=== PATIENT | male | born 1965 | race Hispanic/Latino ===

== ENCOUNTER 2019-10-23 12:30 | Outpatient (CLI) | payer OTHER | END 2019-10-23 12:31 | disposition home or self-care (01) | LOC: DTY/OP 12:30 | PROVIDERS: ATTEND Family Medicine | DX: E11.9 Type 2 diabetes mellitus without complications (principal) | CPT/HCPCS: 97802 ==

== ENCOUNTER 2024-07-31 13:16 | Emergency (ER) | payer BC ==
[2024-07-31 14:35] LABS: #Basophils Less than 0.03 10x3/uL (0.0-0.2); #Eosinphils Less than 0.03 10x3/uL (0.0-0.7); %Basophils 0.1 % (0.0-1.0); %Lymphocytes 8.7 % (21.0-51.0); %Monocytes 5.8 % (0.0-10.0); %Neutrophils 84.8 % (42.0-75.0); Hematocrit 40.2 % (42.0-52.0); Hemoglobin 13.2 g/dL (14.0-18.0); Mean Corpuscular HGB CONC 32.8 g/dL (32.0-36.0); Mean Corpuscular Volume 88.4 fL (78.0-98.0); Mean Platelet Volume 8.9 fL (7.4-10.4); Platelet Count 274 10x3/uL (130-400); RBC Distribution Width 13.7 % (11.5-14.5); Red Blood Cell (RBC) Count 4.55 mill/uL (4.70-6.10)
[2024-07-31 14:51] LABS: ALT (SGPT) 23 U/L (8-55); AST (SGOT) 19 U/L (5-34); Albumin 3.9 g/dL (3.5-5.0); Alkaline Phosphatase 116 U/L (40-110); Anion Gap 14 mmol/L (10-20); BUN (Urea Nitrogen) 18 mg/dL (8.4-25.7); Bilirubin, Total 0.7 mg/dL (0.2-1.2); Calc. Creatinine Clearance 0 mL/min (70-130); Calcium 9.9 mg/dL (7.8-10.44); Carbon Dioxide 24 mmol/L (22-29); Chloride 103 mmol/L (98-107); Estimated GFR 100; Globulin 4.7 g/dL (2.4-3.5); Glucose 118 mg/dL (70-105); Lipase 18 U/L (8-78); Potassium 4.4 mmol/L (3.5-5.1); Protein, Total 8.6 g/dL (6.0-8.3); Sodium 137 mmol/L (136-145)
[2024-07-31] MEDS ORDERED: Ketorolac Tromethamine 30 MG (1 mL) VIAL ONE (15:43)
== END 2024-07-31 17:40 | disposition home or self-care (01) ==
LOC: ERS 13:16
DX: M54.42 Lumbago with sciatica, left side (principal); M54.41 Lumbago with sciatica, right side
CPT/HCPCS: 36415; 72131; 80053; 83690; 85025; 96374; J1885

== ENCOUNTER 2024-08-07 15:16 | Outpatient (CLI) | payer BC | END 2024-08-07 15:17 | disposition home or self-care (01) | LOC: ULT 15:16 | PROVIDERS: ATTEND Family Medicine | DX: M79.604 Pain in right leg (principal) ==

== ENCOUNTER 2024-08-28 10:00 | Outpatient (CLI) | payer BC ==
[2024-08-28] MEDS ORDERED: Iopamidol 370 76% 100 ML VIAL ONE (15:16)
== END 2024-08-31 12:00 | disposition home or self-care (01) ==
LOC: CT 10:00
PROVIDERS: ATTEND Thoracic Surgery (Cardiothoracic Vascular Surgery)
DX: I65.23 Occlusion and stenosis of bilateral carotid arteries (principal)
CPT/HCPCS: 70498; Q9967

== ENCOUNTER 2024-09-22 16:22 | Inpatient (IN) | payer BC ==
[2024-09-22 17:43] LABS: #Basophils Less than 0.03 10x3/uL (0.0-0.2); #Eosinophils Less than 0.03 10x3/uL (0.0-0.7); %Basophils 0.2 % (0.0-1.0); %Eosinophils 0.1 % (0.0-10.0); %Monocytes 5.4 % (0.0-10.0); %Neutrophils 73.2 % (42.0-75.0); Hematocrit 36.1 % (42.0-52.0); Hemoglobin 11.9 g/dL (14.0-18.0); Mean Corpuscular Hemoglobin 28.7 pg (27.0-31.0); Mean Corpuscular Volume 87.2 fL (78.0-98.0); Mean Platelet Volume 8.8 fL (7.4-10.4); Platelet Count 149 10x3/uL (130-400); RBC Distribution Width 14.3 % (11.5-14.5); Red Blood Cell (RBC) Count 4.14 mill/uL (4.70-6.10)
[2024-09-22 18:18] LABS: ALT (SGPT) 25 U/L (8-55); AST (SGOT) 21 U/L (5-34); Albumin 3.5 g/dL (3.5-5.0); Alkaline Phosphatase 128 U/L (40-110); Anion Gap 14 mmol/L (10-20); BUN (Urea Nitrogen) 10 mg/dL (8.4-25.7); Bilirubin, Total 0.4 mg/dL (0.2-1.2); Calc. Creatinine Clearance 0 mL/min (70-130); Calcium 9.4 mg/dL (7.8-10.44); Carbon Dioxide 24 mmol/L (22-29); Chloride 102 mmol/L (98-107); Estimated GFR 105; Globulin 4.4 g/dL (2.4-3.5); Glucose 166 mg/dL (70-105); Protein, Total 7.9 g/dL (6.0-8.3); Sodium 136 mmol/L (136-145)
[2024-09-22 18:19] LABS: Troponin I Less than 0.010 ng/mL (< 0.028)
[2024-09-22] MEDS ORDERED: Ondansetron ODT 4 MG TAB PO PRN (18:59)
[2024-09-22] MEDS ORDERED: traMADol HCl 50 MG TAB PO PRN (18:59)
[2024-09-22] MEDS ORDERED: Acetaminophen 650 MG Suppository PR PRN (18:59)
[2024-09-22] MEDS ORDERED: Ondansetron PF 4 MG/2 ML Vial IVP PRN (18:59)
[2024-09-22] MEDS ORDERED: Acetaminophen 325 MG TAB PO PRN (18:59)
[2024-09-22 21:12] LABS: Troponin I Less than 0.010 ng/mL (< 0.028)
[2024-09-22 21:53] VITALS: BMI 23.5
[2024-09-23] MEDS ORDERED: PHENYLEPHRINE-NS 100 MCG/ML 10 ML SYRINGE ONE (10:10)
[2024-09-23] MEDS ORDERED: PROPOFOL 200 MG/20 ML VIAL ONE (10:10)
[2024-09-23] MEDS: Famotidine 20 MG TAB PO SCH (21:07)
[2024-09-23] MEDS: Cefepime 1 GM in Sodium Chloride 0.9% 100 ML IVPB SCH (21:07)
[2024-09-24] MEDS: Famotidine/PF 20 mg/2ml Vial SLOW IVP SCH (02:11)
[2024-09-24] MEDS ORDERED: Atorvastatin Calcium 10 MG TAB ONE (08:28)
[2024-09-24] MEDS ORDERED: Tamsulosin HCl 0.4 MG CAP ONE (08:28)
[2024-09-24] MEDS ORDERED: Aspirin 81 mg Enteric Coated Tablet ONE (08:28)
[2024-09-24] MEDS ORDERED: Famotidine 20 MG TAB ONE ×2 (08:28→21:25)
[2024-09-24] MEDS: Sodium Chloride 0.9% 1,000 ML IV SCH (17:56)
[2024-09-24] MEDS ORDERED: cefTRIAXone (ROCEPHIN) 2 GM VIAL ONE (22:55)
[2024-09-24] MEDS: cefTRIAXone (ROCEPHIN) 2 GM VIAL ONE (22:57)
[2024-09-24] MEDS: Vancomycin (BATCH) 1.25 GM in Premix 1 BAG IVPB SCH (23:27)
[2024-09-25] MEDS: Atorvastatin Calcium 10 MG TAB ONE ×2 (00:36→13:39)
[2024-09-25] MEDS: Tamsulosin HCl 0.4 MG CAP ONE ×2 (00:36→13:39)
[2024-09-25] MEDS: Aspirin 81 mg Enteric Coated Tablet ONE ×2 (00:36→13:39)
[2024-09-25] MEDS: Sodium Chloride 0.9% 100 ML ONE ×2 (00:36→06:10)
[2024-09-25 05:20] LABS: #Basophils Less than 0.03 10x3/uL (0.0-0.2); %Basophils 0.2 % (0.0-1.0); %Eosinophils 0.6 % (0.0-10.0); %Lymphocytes 29.2 % (21.0-51.0); %Monocytes 7.3 % (0.0-10.0); %Neutrophils 61.2 % (42.0-75.0); Hematocrit 32.3 % (42.0-52.0); Hemoglobin 10.5 g/dL (14.0-18.0); Mean Corpuscular HGB CONC 32.5 g/dL (32.0-36.0); Mean Corpuscular Hemoglobin 28.6 pg (27.0-31.0); Mean Platelet Volume 8.7 fL (7.4-10.4); Platelet Count 159 10x3/uL (130-400); Red Blood Cell (RBC) Count 3.67 mill/uL (4.70-6.10)
[2024-09-25 05:56] LABS: Vancomycin, Random 17.5 ug/mL (See Comment)
[2024-09-25 05:58] LABS: ALT (SGPT) 29 U/L (8-55); AST (SGOT) 26 U/L (5-34); Albumin 2.9 g/dL (3.5-5.0); Alkaline Phosphatase 131 U/L (40-110); Anion Gap 13 mmol/L (10-20); BUN (Urea Nitrogen) 15 mg/dL (8.4-25.7); Bilirubin, Total 0.2 mg/dL (0.2-1.2); Calc. Creatinine Clearance 100 mL/min (70-130); Calcium 8.4 mg/dL (7.8-10.44); Carbon Dioxide 23 mmol/L (22-29); Chloride 109 mmol/L (98-107); Estimated GFR 103; Globulin 3.9 g/dL (2.4-3.5); Glucose 179 mg/dL (70-105); Protein, Total 6.8 g/dL (6.0-8.3); Sodium 141 mmol/L (136-145)
[2024-09-25] MEDS: cefTRIAXone (ROCEPHIN) 2 GM VIAL ONE (06:10)
[2024-09-25] MEDS ORDERED: cefTRIAXone (ROCEPHIN) 2 GM VIAL ONE (06:10)
[2024-09-25] MEDS ORDERED: Vancomycin (BATCH) 1.25 GM/250 ML BAG ONE (09:00)
[2024-09-25] MEDS ORDERED: Famotidine 20 MG TAB ONE (09:00)
[2024-09-25] MEDS ORDERED: Iopamidol-370 76% 500 ML MDV (1 ML CHARGE) ONE (11:30)
[2024-09-25] MEDS: Tamsulosin HCl 0.4 MG CAP PO SCH (13:39)
[2024-09-25] MEDS: Aspirin 81 mg Enteric Coated Tablet PO SCH (13:39)
[2024-09-25] MEDS: Atorvastatin Calcium 40 MG TAB PO SCH (13:39)
[2024-09-25] MEDS: VANCOMYCIN 1.25 GM/250 ML BAG 1.25 GM in Premix 1 BAG IVPB SCH (15:00)
[2024-09-25] MEDS: metFORMIN 500 MG TAB PO SCH (17:04)
[2024-09-26] MEDS: Atorvastatin Calcium 10 MG TAB ONE (09:02)
[2024-09-26] MEDS: Aspirin 81 mg Enteric Coated Tablet ONE (09:02)
[2024-09-26] MEDS: Tamsulosin HCl 0.4 MG CAP ONE (09:02)
[2024-09-26] MEDS: Vancomycin (BATCH) 1.25 GM in Premix 1 BAG IVPB SCH (12:06)
[2024-09-27 07:15] LABS: #Basophils Less than 0.03 10x3/uL (0.0-0.2); %Basophils 0.2 % (0.0-1.0); %Lymphocytes 29.4 % (21.0-51.0); %Monocytes 5.4 % (0.0-10.0); %Neutrophils 60.1 % (42.0-75.0); Hematocrit 32.2 % (42.0-52.0); Hemoglobin 10.4 g/dL (14.0-18.0); Mean Corpuscular HGB CONC 32.3 g/dL (32.0-36.0); Mean Corpuscular Hemoglobin 28.6 pg (27.0-31.0); Mean Corpuscular Volume 88.5 fL (78.0-98.0); Mean Platelet Volume 8.8 fL (7.4-10.4); Platelet Count 176 10x3/uL (130-400); RBC Distribution Width 14.5 % (11.5-14.5); Red Blood Cell (RBC) Count 3.64 mill/uL (4.70-6.10)
[2024-09-27 07:33] LABS: ALT (SGPT) 26 U/L (8-55); AST (SGOT) 20 U/L (5-34); Alkaline Phosphatase 114 U/L (40-110); Anion Gap 12 mmol/L (10-20); BUN (Urea Nitrogen) 10 mg/dL (8.4-25.7); Bilirubin, Total 0.2 mg/dL (0.2-1.2); Calc. Creatinine Clearance 117 mL/min (70-130); Calcium 8.6 mg/dL (7.8-10.44); Carbon Dioxide 23 mmol/L (22-29); Chloride 108 mmol/L (98-107); Estimated GFR 108; Globulin 3.7 g/dL (2.4-3.5); Glucose 122 mg/dL (70-105); Potassium 3.8 mmol/L (3.5-5.1); Protein, Total 6.7 g/dL (6.0-8.3); Sodium 139 mmol/L (136-145)
[2024-09-27] MEDS: Atorvastatin Calcium 10 MG TAB ONE (08:56)
[2024-09-27] MEDS: Aspirin 81 mg Enteric Coated Tablet ONE (08:56)
[2024-09-27] MEDS: Tamsulosin HCl 0.4 MG CAP ONE (08:57)
[2024-09-28 05:40] LABS: #Basophils 0.03 10x3/uL (0.0-0.2); %Basophils 0.3 % (0.0-1.0); %Eosinophils 1.2 % (0.0-10.0); %Lymphocytes 30.2 % (21.0-51.0); %Monocytes 6.4 % (0.0-10.0); %Neutrophils 59.9 % (42.0-75.0); Hemoglobin 10.2 g/dL (14.0-18.0); Mean Corpuscular HGB CONC 31.9 g/dL (32.0-36.0); Mean Corpuscular Hemoglobin 27.9 pg (27.0-31.0); Mean Corpuscular Volume 87.4 fL (78.0-98.0); Mean Platelet Volume 9.1 fL (7.4-10.4); Platelet Count 173 10x3/uL (130-400); RBC Distribution Width 14.6 % (11.5-14.5); Red Blood Cell (RBC) Count 3.66 mill/uL (4.70-6.10)
[2024-09-28 05:56] LABS: ALT (SGPT) 25 U/L (8-55); AST (SGOT) 19 U/L (5-34); Albumin 2.9 g/dL (3.5-5.0); Alkaline Phosphatase 105 U/L (40-110); Anion Gap 11 mmol/L (10-20); BUN (Urea Nitrogen) 12 mg/dL (8.4-25.7); Bilirubin, Total 0.2 mg/dL (0.2-1.2); Calc. Creatinine Clearance 118 mL/min (70-130); Calcium 8.8 mg/dL (7.8-10.44); Carbon Dioxide 24 mmol/L (22-29); Chloride 107 mmol/L (98-107); Estimated GFR 108; Globulin 3.4 g/dL (2.4-3.5); Glucose 116 mg/dL (70-105); Potassium 3.8 mmol/L (3.5-5.1); Protein, Total 6.3 g/dL (6.0-8.3); Sodium 138 mmol/L (136-145)
[2024-09-28] MEDS: Tamsulosin HCl 0.4 MG CAP ONE (08:15)
[2024-09-28] MEDS: Aspirin 81 mg Enteric Coated Tablet ONE (08:15)
[2024-09-28] MEDS: DAPTOmycin 700 MG in Sodium Chloride 0.9% 50 ML IVPB SCH (11:01)
[2024-09-28] MEDS: Enoxaparin 40 MG (0.4 mL) SYRINGE SC SCH (20:24)
[2024-09-29] MEDS: Aspirin 81 mg Enteric Coated Tablet ONE (08:43)
[2024-09-29] MEDS: Tamsulosin HCl 0.4 MG CAP ONE (08:43)
[2024-09-29] MEDS: Atorvastatin Calcium 10 MG TAB ONE (08:43)
[2024-09-29 10:27] VITALS: BMI 24.0
[2024-09-29] MEDS ORDERED: Lorazepam 1 MG TAB PO PRN (10:50)
[2024-09-29] MEDS ORDERED: Magnevist 469MG/ML 20 ML VIAL ONE (16:00)
[2024-10-01 04:55] LABS: #Basophils 0.04 10x3/uL (0.0-0.2); %Basophils 0.5 % (0.0-1.0); %Eosinophils 0.7 % (0.0-10.0); %Lymphocytes 30.9 % (21.0-51.0); %Monocytes 5.2 % (0.0-10.0); %Neutrophils 61.3 % (42.0-75.0); Hematocrit 31.9 % (42.0-52.0); Hemoglobin 10.2 g/dL (14.0-18.0); Mean Corpuscular Hemoglobin 28.1 pg (27.0-31.0); Mean Corpuscular Volume 87.9 fL (78.0-98.0); Mean Platelet Volume 8.9 fL (7.4-10.4); Platelet Count 179 10x3/uL (130-400); RBC Distribution Width 15.1 % (11.5-14.5); Red Blood Cell (RBC) Count 3.63 mill/uL (4.70-6.10)
[2024-10-01 06:02] LABS: ALT (SGPT) 24 U/L (8-55); AST (SGOT) 21 U/L (5-34); Alkaline Phosphatase 98 U/L (40-110); Anion Gap 13 mmol/L (10-20); BUN (Urea Nitrogen) 16 mg/dL (8.4-25.7); Bilirubin, Total 0.3 mg/dL (0.2-1.2); Calc. Creatinine Clearance 121 mL/min (70-130); Calcium 8.8 mg/dL (7.8-10.44); Carbon Dioxide 24 mmol/L (22-29); Chloride 108 mmol/L (98-107); Estimated GFR 108; Globulin 3.5 g/dL (2.4-3.5); Glucose 108 mg/dL (70-105); Potassium 3.8 mmol/L (3.5-5.1); Protein, Total 6.5 g/dL (6.0-8.3); Sodium 141 mmol/L (136-145)
[2024-10-02 04:37] LABS: Anion Gap 12 mmol/L (10-20); BUN (Urea Nitrogen) 12 mg/dL (8.4-25.7); Calc. Creatinine Clearance 131 mL/min (70-130); Calcium 8.7 mg/dL (7.8-10.44); Carbon Dioxide 25 mmol/L (22-29); Chloride 107 mmol/L (98-107); Estimated GFR 111; Glucose 102 mg/dL (70-105); Potassium 3.9 mmol/L (3.5-5.1); Sodium 140 mmol/L (136-145)
[2024-10-03 05:04] LABS: Anion Gap 12 mmol/L (10-20); BUN (Urea Nitrogen) 14 mg/dL (8.4-25.7); Calc. Creatinine Clearance 123 mL/min (70-130); Calcium 8.9 mg/dL (7.8-10.44); Carbon Dioxide 25 mmol/L (22-29); Chloride 108 mmol/L (98-107); Estimated GFR 109; Glucose 107 mg/dL (70-105); Sodium 141 mmol/L (136-145)
[2024-10-05 10:30] LABS: Anion Gap 11 mmol/L (10-20); BUN (Urea Nitrogen) 11 mg/dL (8.4-25.7); Calc. Creatinine Clearance 124 mL/min (70-130); Carbon Dioxide 23 mmol/L (22-29); Chloride 106 mmol/L (98-107); Estimated GFR 110; Glucose 111 mg/dL (70-105); Potassium 4.1 mmol/L (3.5-5.1); Sodium 136 mmol/L (136-145); Vancomycin, Random 20.8 ug/mL (See Comment)
[2024-10-05 10:31] LABS: %Basophils 0.2 % (0.0-1.0); %Eosinophils 0.2 % (0.0-10.0); %Monocytes 7.3 % (0.0-10.0); %Neutrophils 67.3 % (42.0-75.0); Hematocrit 32.3 % (42.0-52.0); Hemoglobin 10.3 g/dL (14.0-18.0); Mean Corpuscular HGB CONC 31.9 g/dL (32.0-36.0); Mean Corpuscular Hemoglobin 28.4 pg (27.0-31.0); Mean Platelet Volume 8.8 fL (7.4-10.4); Platelet Count 151 10x3/uL (130-400); RBC Distribution Width 14.4 % (11.5-14.5); Red Blood Cell (RBC) Count 3.63 mill/uL (4.70-6.10)
[2024-10-05 10:32] LABS: #Basophils Less than 0.03 10x3/uL (0.0-0.2); #Eosinophils Less than 0.03 10x3/uL (0.0-0.7)
[2024-10-05] MEDS ORDERED: Lidocaine 1% PF 5 ML VIAL ONE (11:00)
[2024-10-05] MEDS ORDERED: Sodium Bicarbonate 2.5 MEQ/5 ML SDV ONE (11:00)
[2024-10-05 15:50] VITALS: BP 123/57; TEMP 98.4
== END 2024-10-05 16:12 | disposition home or self-care (01) | DRG 307 ==
LOC: ERS 16:22 → OBS 19:19
PROVIDERS: ADMIT Student in an Organized Health Care Education/Training Program; ATTEND Internal Medicine
PROC: 02HV33Z Insertion of Infusion Device into Superior Vena Cava, Percutaneous Approach (ICD-10-PCS; principal; 2024-10-05)
DX: I35.8 Other nonrheumatic aortic valve disorders (principal); I69.851 Hemiplegia and hemiparesis following other cerebrovascular disease affecting right dominant side; R78.81 Bacteremia; M86.9 Osteomyelitis, unspecified; M60.009 Infective myositis, unspecified site; M46.47 Discitis, unspecified, lumbosacral region; E78.5 Hyperlipidemia, unspecified; N40.0 Benign prostatic hyperplasia without lower urinary tract symptoms; Z79.82 Long term (current) use of aspirin; Z79.84 Long term (current) use of oral hypoglycemic drugs; Z79.899 Other long term (current) drug therapy; Z98.890 Other specified postprocedural states; I47.9 Paroxysmal tachycardia, unspecified; I77.9 Disorder of arteries and arterioles, unspecified
CPT/HCPCS: 36415; 36416; 36573; 71045; 71260; 72141; 72146; 72148; 72149; 74177; 80048; 80053; 80202; 83605; 83880; 84484; 85025; 86141; 87040; 87077; 87149; 87186; 93005; 93312; 93880; C1751; J0692; J0696; J0878; J1650; J2704; J3370; J7030; Q9967

== ENCOUNTER 2024-11-24 14:58 | Outpatient (CLI) | payer BC ==
[~2024-11-24 14:58] MED LIST: Magnevist 469MG/ML 20 ML VIAL ONE
== END 2024-11-24 14:59 | disposition home or self-care (01) ==
LOC: BICMRI 14:58
PROVIDERS: ATTEND Neurological Surgery
DX: M86.9 Osteomyelitis, unspecified (principal); M47.816 Spondylosis without myelopathy or radiculopathy, lumbar region; R60.9 Edema, unspecified
CPT/HCPCS: 72158